=== PATIENT | female | born 1930 | race Hispanic/Latino ===

== ENCOUNTER 2020-01-30 12:22 | Emergency (ER) | payer OTHER ==
--- OUTSIDE RECORDS SUMMARY | 2020-01-30 13:07 | XMS REPORT | Continuity of Care Document ---
:1930 Author Organization [facility] t Address [address] [place] [address] [address]. [address] [place] [address] Care Team Providers Name Role Phone Estela VAZ Attending Clinician Unavailable Estela VAZ Admitting Clinician Unavailable Problems This patient has no known problems. Allergies, Adverse Reactions, Alerts This patient has no known allergies or adverse reactions. Medications This patient has no known medications. Procedures This patient has no known procedures. Encounters Start End Encounter Admission Attending Care Care Encounter Source Date/Time Date/Time Type Type Clinicians Facility Department ID 2016-09-27 2016-09-28 Inpatient [address] [facility] [id number] [facility] 18:00:00 21:21:00 [facility] ([facility]) Results Test Description Test Time Test Comments Results Result Sour e Comments ECHO COMPLETE 2016-11-19 [facility] W/DOP[facility]ER [address] [place], [place] [address] RE[facility]Name: SIENNA GA Study Date: 11/27/2016 03:21 PMMRN: [id number] Patient Location: T4\S\4411\S\AHR: 70DOB: 1930 (M/d/yyyy)Gender: FemaleAge: 86 yrsHeight: 61 in Weight: 104 lbBSA: 1.4 [id number] For Study: CHEST PAINProceduresA complete two-dimensional transthoracic echocardiogram was performed (2D,M-mode, Doppler and color flow Doppler).MMode/2D Measurements and CalculationsIVSd: 1.3 cm LVIDd: 4.3 cmIVSs: 2.0 cm LVIDs: 2.7 cmLVPWd: 1.4 cmLVPWs: 1.6 cm FS: 38.2 % % IVS thick: 51.6 %EDV(Teich): 84.6 mlESV(Teich): 26.5 mlEF(Teich): 68.7 % SV(Teich): 58.2 ml MV E-F slope: 4.8 cm/sec Ao root diam: 2.7 cm LVOT diam: 2.0 cmAo root area: 5.8 cm LVOT area: 3.1 cm2ACS: 1.4 cmLA dimension: 4.4 cm SV(MOD-sp4): 27.4 mlLVAd ap4: 22.7 cmLVLd ap4: 7.0 cmEDV(MOD-sp4): 59.5 mlEDV(sp4-el): 62.6 mlLVAs ap4: 15.5 cmLVLs ap4: 6.4 cmESV(MOD-sp4): 32.0 mlESV(sp4-el): 31.5 mlEF(MOD-sp4): 46.1 %EF(sp4-el): 49.7 % SV(sp4-el): 31.1 mlDoppler Measurements and CalculationsMV E max lily: 75.8 cm/sec MV P1/2t max lily: 77.0 cm/secMV A max lily: 137.5 cm/sec MV P1/2t: 74.0 msecMV E/A: 0.55 MVA(P1/2t): 3.0 cmMV dec slope: 304.5 cm/secMV dec time: 0.26 sec Ao V2 max: 113.1 cm/sec LV V1 max P.2 mmHgAo max P.1 mmHg LV V1 max: 90.0 cm/secAVA(V,D): 2.5 cm2 MR max lily: 461.6 cm/sec TR max lily: 370.0 cm/secMR max P.2 mmHg TR max P.8 mmHgRVSP(TR): 64.8 mmHg RAP systole: 10.0 mmHgLeft VentricleThe left ventricle is grossly normal size. There is mild concentric leftventricular hypertrophy. Left ventricular systolic function is mild tomoderately reduced. Ejection Fraction = 40-45%. The transmitral spectralDoppler flow pattern is suggestive of impaired LV relaxation. There is mildinferior wall hypokinesis. There is moderate lateral wall hypokinesis.Right VentricleThe right ventricle is grossly normal size. The right ventricle is not wellvisualized. The right ventricular systolic function is normal.AtriaThe left atrium is mildly dilated. Right atrial size is normal.Mitral ValveThere is mild mitral annular calcification. There is mild mitralregurgitation.Tricusp id ValveThe tricuspid valve is not well visualized, but is grossly normal. There ismoderate tricuspid regurgitation. Right ventricular systolic pressure is 60-65mmHg.Aortic ValveThe aortic valve opens well. There is moderate aortic valve sclerosis.Trace aortic regurgitation.Great VesselsThe aortic root is normal size.Interpretation SummaryLeft ventricular systolic function is mild to moderately reduced.Ejection Fraction = 40-45%.The transmitral spectral Doppler flow pattern is suggestive of impaired LVrelaxation.There is mild concentric left ventricular hypertrophy.There is moderate tricuspid regurgitation.Right ventricular systolic pressure is 60-65mmHg. Semaj Singer MD 11/29/2016Reading Physician: Electronically signed by:03:15 PMOrdering Physician: DREA RICHARDSONReferrkareen Physician: DREA RICHARDSONPerformed By: JASON LAIRD [facility], [facility] MRI BRAIN W 2016-11-[address] 07:44:00 [place], [place] [id number] IMAGING REPORTPatient Name: Say GA of Service: [id number]: 86 Sex: F Order #: [id number] Room: [address] [place] [address] T4DOB: 1930 X-Ray Number: [id number] Record Number: [id number] Hospital Number: [id number] Physician: DREA RICHARDSONOrdering Physician: SLIM BOXBrain MRI.History: Altered mental status.Technique: Pre and post IV contrast enhanced multiplanar multisequence MRIimages of the brain were reviewed.Comparison: None.Findings:Examination is limited to mild degree secondary to motion artifact.There are extensive chronic appearing microvascular ischemic changes noted.There are no specific acute appearing intracranial defects depicted.The ventricles appear symmetric and midline.The mobley-white matter differentiation appears normal.The intracranial flow voids appear normal.There are no areas of diffusion restriction to suggest the presence ofacute or subacute ischemia.There are no enhancing defects.Right maxillary sinus disease is noted.Impression:No specific acute appearing intracranial abnormalities.Extensive chronic microvascular ischemic changes.Right maxillary sinus disease.Electronically Signed By: Merrill Olvera M.D., 11/28/2016 7:42 AMLegally authenticated by YESENIA Cornell 2016-11-28 07:42:08 CHEST [address] 14:28:00 [place] [id number] IMAGING REPORTPatient Name: Say GA of Service: [id number]: 86 Sex: F Order #: [id number] Room: ERSDOB: 1930 X-Ray Number: [id number] Record Number: [id number] Hospital Number: [id number] Physician: Meaghan WALLIS Physician: Jolene PATINO one view 2112 hoursComparisons: 11/11/2015History: Unresponsive, CVA, asthma.Findings:Heart size is mildly enlarged.There is no focal lung consolidation. There is strandy atelectasis at thelung bases.There is no pleural effusion or pneumothorax.Hyperinflation could relate to COPD.Impression:No acute cardiopulmonary process.Electronically Signed By: Lazaro Torres M.D., 11/26/2016 2:26 PMLegally authenticated by MAHESH CUADRA 2016-11-26 14:26:02 CT HEAD W/O CONT [address] 14:19:00 [place], [place] [id number] IMAGING REPORTPatient Name: AURELIA GAWero of Service: [id number]: 86 Sex: F Order #: [id number] Room: ERSDOB: 1930 X-Ray Number: [id number] Record Number: [id number] Hospital Number: [id number] Physician: Meaghan WALLIS Physician: BRIGITTE PATINO head without contrast 10:13 PMHistory: ConfusionComparisons: 06/20/2014History: Altered mental status.This CT exam was performed using one or more of the following dosereduction techniques: Automated exposure control, adjustment of the MAand/or KV according to patient size or use of iterative reconstructiontechnique.Fin dings:There is diffuse cortical atrophy.Periventricular white matter changes are technically nonspecific althoughthese suggest chronic small vessel gliosis.There is no mass effect or midline shift present.There is no extra-axial fluid collection, intracranial hemorrhage orhydrocephalus.There is a right maxillary sinus retention cyst.Impression:Suspected chronic/old ischemic changes with diffuse cortical atrophy.No acute abnormality is detected.EMERGENT INTERPRETATION PROVIDED BY [facility].Electronically Signed By: Lazaro Torres M.D., 11/26/2016 2:16 PMLegally authenticated by MAHESH CUADRA 2016-11-26 14:16:51
[2020-01-30 14:20] LABS: Absolute Lymphocytes (CBC) 1.8 K/uL (0.7-4.9); Basophils % 0.3 % (0-1.3); Hematocrit 43.6 % (36.0-45.0); Lymphocytes % 27.4 % (15.3-44.8); MPV 9.5 fL (7.6-11.3); RBC Red Blood Cell Count 4.71 M/uL (3.86-4.86)
[2020-01-30 14:21] LABS: Protime INR 1.1
[2020-01-30] MEDS ORDERED: NA CHLORIDE 0.9% 500 ML ONE (14:21)
[2020-01-30 14:43] LABS: Albumin 3.2 g/dL (3.4-5.0); Bilirubin Direct 0.2 mg/dL (0-0.2); Bilirubin Total 0.4 mg/dL (0.2-1.0); Magnesium 1.7 mg/dL (1.8-2.4); Potassium 3.7 mmol/L (3.5-5.1); Protein, Total 7.7 g/dL (6.4-8.2); Troponin (Emerg Dept Use Only) 0.03 ng/mL (0.0-0.045)
--- NOTE | 2020-01-30 14:48 | RAD REPORT ---
EXAM DESCRIPTION: RAD - Chest Single View - 01/30/2020 2:31 pm CLINICAL HISTORY: weakness, history of positive COVID test COMPARISON: Portable December 2015 TECHNIQUE: AP portable chest image was obtained 01/30/2020 2:31 pm . FINDINGS: Extensive interstitial opacification is present similar or only slightly more pronounced t river seen previously. No dense consolidation seen. Minimal airspace opacification present. Again, airs pace findings are not substantially different. Heart and vasculature are normal. No measurable pleura l effusion and no pneumothorax. No acute bony abnormality seen. No acute aortic findings suspected. IMPRESSION: Extensive chronic interstitial lung disease not substantially different from comparison. This could mask early interstitial edema or infiltrate. No dense consolidation. Patient does have some hazy airspace opacification that is not substantially different. Viral pneumonia including COVID-19 pneumonia can have this appearance. If it would alter medical management, CT imaging could be performed to better assess airspace disease .
--- NOTE | 2020-01-30 16:06 | EDPHYS ---
Physician Documentation [facility] Name: Sirena Herrera Age: 89 yrs Sex: Female : 1930 Arrival Date: 01/30/2020 Time: 12:25 Bed 19 Private MD: ED Physician Rudolph Zhong HPI: 01/29 13:46 This 89 yrs old Female presents to ER via Wheelchair with complaints of jmm COVID+, Weakness. 13:46 Daughter states the patient was recently diagnoses with coronavirus and prescribed jmm azithromycin. Initial symptoms began this past Sunday. States the patient has not been able to eat or drink and has become increasingly weak. . Historical: - Allergies: 12:47 Amoxicillin; em 12:47 Bactrim; em 12:47 Codeine; em 12:47 darvocet; em 12:47 Doxycycline; em 12:47 Latex, Natural Rubber; em 12:47 metformin; em 12:47 Sulfa (Sulfonamide Antibiotics); em - Home Meds: 13:30 levothyroxine 50 mcg tab once daily [Active]; Lasix 20 mg Oral tab once daily [Active]; aa5 Januvia 100 mg oral tab 1 tab once daily [Active]; Keppra 250 mg Oral tab 2 times per day [Active]; Coreg 3.125 mg Oral tab 2 times per day [Active]; Plavix 75 mg Oral tab 1 tab once daily [Active]; donepezil 10 mg oral tab once daily [Active]; Tricor 145 mg Oral tab 1 tab once daily [Active]; Foltx oral oral once daily [Active]; Detrol LA 4 mg Oral cp24 1 cap once daily [Active]; Levemir 100 unit/mL subcutaneous soln 50 units in the morning and 15 units in the evening. [Active]; Celexa Oral 5mg daily [Active]; Lumigan 0.01 % ophthalmic drop [Active]; Alphagan P ophthalmic ophthalmic [Active]; alendronate 35 mg oral tab once wkly [Active]; Nitroglycerin SL [Active]; multivitamin oral tab [Active]; - PMHx: 12:47 Asthma; CAD; COPD; Diabetes - IDDM; Glaucoma; Hypothyroidism; Osteoporosis; PVD; em - PSHx: 12:47 Cholecystectomy; fem pop; aortagram; iliac bypass; trabeculectomy; cardiac stents; em Appendectomy; - Immunization history:: Adult Immunizations up to date. - Social history:: Smoking status: Patient denies any tobacco usage or history of. ROS: 13:46 Abdomen/GI: Negative for abdominal pain, nausea, vomiting, diarrhea, and constipation. [facility] 13:46 Constitutional: Positive for fatigue. 13:46 Respiratory: Positive for cough. 13:46 All other systems are negative. Exam: 13:46 Head/Face: atraumatic. Eyes: EOMI, no conjunctival erythema appreciated ENT: Moist jm Mucus Membranes Neck: Trachea midline, Supple Chest/axilla: Normal chest wall appearance and motion. Cardiovascular: Regular rate and rhythm. No edema appreciated Respiratory: Normal respirations, no respiratory distress appreciated Abdomen/GI: Non distended, soft Back: Normal ROM Skin: General appearance color normal 13:46 Constitutional: The patient appears alert, awake. 13:46 Musculoskeletal/extremity: no perepheral edema. 13:46 Skin: Appearance: Color: normal in color. 13:46 Neuro: Orientation: is normal, Mentation: is normal, Memory: is normal. 13:46 Psych: Behavior/mood is pleasant, cooperative. Vital Signs: 12:44 BP 139 / 61; Pulse 74; Resp 18; Temp 97.3; Pulse Ox 97% on R/A; Weight 53.52 kg; Height em 5 ft. 1 in. (154.94 cm); Pain 0/10; 15:00 BP 168 / 67; Pulse 71; Resp 18 S; Temp 97.7(O); Pulse Ox 97% on R/A; Pain 0/10; aa5 16:30 BP 154 / 65; Pulse 70; Resp 16 S; Pulse Ox 98% on R/A; aa5 12:44 Body Mass Index 22.30 (53.52 kg, 154.94 cm) em MDM: 13:36 Patient medically screened. [facility] 16:04 Data reviewed: vital signs, nurses notes. Counseling: I had a detailed discussion with samantha the patient and/or guardian regarding: the historical points, exam findings, and any diagnostic results supporting the discharge/admit diagnosis, lab results, radiology results, the need for outpatient follow up, to return to the emergency department if symptoms worsen or persist or if there are any questions or concerns that arise at home. 01/29 13:42 Order name: Basic Metabolic Panel; Complete Time: 14:49 [facility] 01/29 13:42 Order name: CBC with Diff; Complete Time: 14:29 [facility] 01/29 13:42 Order name: LFT's; Complete Time: 14:49 [facility] 01/29 13:42 Order name: Magnesium; Complete Time: 14:49 [facility] 01/29 13:42 Order name: NT PRO-BNP; Complete Time: 14:49 [facility] 01/29 13:42 Order name: PT-INR; Complete Time: 14:29 [facility] 01/29 13:42 Order name: Troponin (emerg Dept Use Only); Complete Time: 14:49 [facility] 01/29 13:42 Order name: XRAY Chest (1 view); Complete Time: 14:50 [facility] 01/29 13:42 Order name: EKG; Complete Time: 13:43 [facility] 01/29 13:42 Order name: CRP; Complete Time: 14:49 [facility] 01/29 15:38 Order name: Urine Culture [facility] 01/29 16:09 Order name: Urine Dipstick--Ancillary (enter results); Complete Time: 16:23 [facility] 01/29 13:42 Order name: Cardiac monitoring; Complete Time: 14:03 [facility] 01/29 13:42 Order name: EKG - Nurse/Tech; Complete Time: 15:53 [facility] 01/29 13:42 Order name: IV Saline Lock; Complete Time: 14:03 [facility] 01/29 13:42 Order name: Labs collected and sent; Complete Time: 14:03 [facility] 01/29 13:42 Order name: O2 Per Protocol; Complete Time: 14:03 [facility] 01/29 13:42 Order name: O2 Sat Monitoring; Complete Time: 14:03 [facility] 01/29 15:38 Order name: Urine Dipstick-Ancillary (obtain specimen); Complete Time: 16:00 [facility] Administered Medications: 14:10 Drug: NS 0.9% 500 ml Route: IV; Rate: bolus; Site: right antecubital; aa5 15:00 Follow up: IV Status: Completed infusion; IV Intake: 500ml aa5 16:45 Drug: Rocephin 1 grams Route: IV; Rate: calculated rate; Site: right antecubital; aa5 Disposition: 20:01 Co-signature as Attending Physician, Rudolph Zhong MD I agree with the assessment and kdr plan of care. Disposition: 01/30/20 16:05 Discharged to Home. Impression: Urinary tract infection, site not specified, Coronavirus infection, unspecified. - Condition is Stable. - Discharge Instructions: Urinary Tract Infection, Adult, COVID-19. - Prescriptions for cefpodoxime 200 mg Oral Tablet - take 1 tablet by ORAL route every 12 hours for 10 days with food; 20 tablet. - Medication Reconciliation Form, Thank You Letter, Antibiotic Education, Prescription Opioid Use form. - Follow up: Private Physician; When: 2 - 3 days; Reason: Recheck today's complaints, Continuance of care, Re-evaluation by your physician. Signatures: Dispatcher [employer] EDMS Rudolph Zhong MD MD kdr Mickail, Joel, PA PA [facility] Forest Lopez, RN RN em Emily Garcia RN RN Marleni Israel RN RN aa5 Corrections: (The following items were deleted from the chart) 17:52 16:05 01/30/2020 16:05 Discharged to Home. Impression: Urinary tract infection, site iw not specified; Coronavirus infection, unspecified. Condition is Stable. Forms are Medication Reconciliation Form, Thank You Letter, Antibiotic Education, Prescription Opioid Use. Follow up: Private Physician; When: 2 - 3 days; Reason: Recheck today's complaints, Continuance of care, Re-evaluation by your physician. [facility]
--- NOTE | 2020-01-30 16:06 | ER ---
Nurse's Notes [facility] Name: Sirena Herrera Age: 89 yrs Sex: Female : 1930 Arrival Date: 01/30/2020 Time: 12:25 Bed 19 Private MD: Diagnosis: Urinary tract infection, site not specified;Coronavirus infection, unspecified Presentation: 01/29 12:44 Chief complaint: Patient's son or daughter states: was tested for covid 1 week ago and em tested pos. since then she has been more weak and not drinking water, denies SOB or CP. Coronavirus screen: Client reports previous positive COVID test result. Date of collection: January 23, 2020. Ebola Screen: Patient negative for fever greater than or equal to 101.5 degrees Fahrenheit, and additional compatible Ebola Virus Disease symptoms Patient denies exposure to infectious person. Patient denies travel to an Ebola-affected area in the 21 days before illness onset. No symptoms or risks identified at this time. Initial Sepsis Screen: Does the patient meet any 2 criteria? No. Patient's initial sepsis screen is negative. Does the patient have a suspected source of infection? No. Patient's initial sepsis screen is negative. Risk Assessment: Do you want to hurt yourself or someone else? Patient reports no desire to harm self or others. Onset of symptoms was January 23, 2020. 12:44 Method Of Arrival: Wheelchair em 12:44 Acuity: ERIKA 3 em Historical: - Allergies: 12:47 Amoxicillin; em 12:47 Bactrim; em 12:47 Codeine; em 12:47 darvocet; em 12:47 Doxycycline; em 12:47 Latex, Natural Rubber; em 12:47 metformin; em 12:47 Sulfa (Sulfonamide Antibiotics); em - Home Meds: 13:30 levothyroxine 50 mcg tab once daily [Active]; Lasix 20 mg Oral tab once daily [Active]; aa5 Januvia 100 mg oral tab 1 tab once daily [Active]; Keppra 250 mg Oral tab 2 times per day [Active]; Coreg 3.125 mg Oral tab 2 times per day [Active]; Plavix 75 mg Oral tab 1 tab once daily [Active]; donepezil 10 mg oral tab once daily [Active]; Tricor 145 mg Oral tab 1 tab once daily [Active]; Foltx oral oral once daily [Active]; Detrol LA 4 mg Oral cp24 1 cap once daily [Active]; Levemir 100 unit/mL subcutaneous soln 50 units in the morning and 15 units in the evening. [Active]; Celexa Oral 5mg daily [Active]; Lumigan 0.01 % ophthalmic drop [Active]; Alphagan P ophthalmic ophthalmic [Active]; alendronate 35 mg oral tab once wkly [Active]; Nitroglycerin SL [Active]; multivitamin oral tab [Active]; - PMHx: 12:47 Asthma; CAD; COPD; Diabetes - IDDM; Glaucoma; Hypothyroidism; Osteoporosis; PVD; em - PSHx: 12:47 Cholecystectomy; fem pop; aortagram; iliac bypass; trabeculectomy; cardiac stents; em Appendectomy; - Immunization history:: Adult Immunizations up to date. - Social history:: Smoking status: Patient denies any tobacco usage or history of. Screenin:00 Abuse screen: No signs of abuse noted. Nutritional screening: Pt's daughter reports aa5 decreased appetite . Tuberculosis screening: No symptoms or risk factors identified. Fall Risk Fall in past 12 months (25 points). IV access (20 points). Mental Status- Overestimates/Forgets Limitations (15 pts.). Total Evans Fall Scale indicates High Risk Score (45 or more points). Fall prevention measures have been instituted. Side Rails Up X 2 Placed Close to Nursing Station. Assessment: 13:30 General: Appears comfortable, Behavior is calm, cooperative. Pain: Denies pain. Neuro: aa5 Level of Consciousness is awake, obeys commands, confused, Oriented to person, Automobile Upholsterer Apprentice are weak bilaterally Weakness Speech is normal. Cardiovascular: Heart tones S1 S2 present Rhythm is regular. Respiratory: Airway is patent Respiratory effort is even, unlabored, Respiratory pattern is regular, symmetrical, Breath sounds are clear bilaterally. Parent/caregiver reports the patient having cough. GI: Abdomen is round distended, Parent/caregiver reports the patient having decreased appetite. : brief noted. EENT: No signs and/or symptoms were reported regarding the EENT system. Derm: Skin is pink, warm \\T\\ dry. Musculoskeletal: Range of motion: intact in all extremities. 14:20 Reassessment: Pt assisted with bedpan, pt voided without difficulties. Clean brief aa5 applied. . 14:23 Reassessment: x-ray at bedside . aa5 14:30 Reassessment: Pt calm, pt lying down in bed. Equal and unlabored respirations, skin is aa5 pink/warm/dry. . 15:30 Reassessment: Pt lying down in bed. Equal and unlabored respirations, skin is aa5 pink/warm/dry. . 16:00 Reassessment: Pt more confused at this time, pt screaming for "Heidy", pt redirected aa5 and able to calm down after being redirected verbally. Pt's daughter states "when she starts screaming for Heidy is because she's " . 16:30 Reassessment: Awaiting for ride home for d/c home. . aa5 17:30 Neuro: Level of Consciousness is awake, obeys commands, confused, Oriented to person. aa5 Respiratory: Airway is patent Respiratory effort is even, unlabored, Respiratory pattern is regular, symmetrical. Derm: Skin is pink, warm \\T\\ dry. Vital Signs: 12:44 BP 139 / 61; Pulse 74; Resp 18; Temp 97.3; Pulse Ox 97% on R/A; Weight 53.52 kg; Height em 5 ft. 1 in. (154.94 cm); Pain 0/10; 15:00 BP 168 / 67; Pulse 71; Resp 18 S; Temp 97.7(O); Pulse Ox 97% on R/A; Pain 0/10; aa5 16:30 BP 154 / 65; Pulse 70; Resp 16 S; Pulse Ox 98% on R/A; aa5 12:44 Body Mass Index 22.30 (53.52 kg, 154.94 cm) em ED Course: 12:25 Patient arrived in ED. ag5 12:46 Triage completed. em 12:47 Arm band placed on. em 13:29 Anderson Maldonado PA is PHCP. jmm 13:29 Rudolph Zhong MD is Attending Physician. jmm 13:30 Patient has correct armband on for positive identification. Bed in low position. Call aa5 light in reach. Side rails up X2. heavy forger helper on. Pulse ox on. NIBP on. 13:44 Marleni Hoff, KAMERON is Primary Nurse. aa5 13:58 Initial lab(s) drawn, by me, sent to lab. Inserted saline lock: 20 gauge in right aa5 antecubital area, using aseptic technique. Blood collected. 14:31 XRAY Chest (1 view) In Process Unspecified. EDMS 17:30 No provider procedures requiring assistance completed. IV discontinued, intact, aa5 bleeding controlled, No redness/swelling at site. Pressure dressing applied. Administered Medications: 14:10 Drug: NS 0.9% 500 ml Route: IV; Rate: bolus; Site: right antecubital; aa5 15:00 Follow up: IV Status: Completed infusion; IV Intake: 500ml aa5 16:45 Drug: Rocephin 1 grams Route: IV; Rate: calculated rate; Site: right antecubital; aa5 Intake: 15:00 IV: 500ml; Total: 500ml. aa5 Outcome: 16:05 Discharge ordered by . [facility] 17:30 Discharged to home via wheelchair, with family. aa5 17:30 Condition: stable 17:30 Discharge instructions given to Pt's daughter/caregiver Instructed on discharge instructions, follow up and referral plans. medication usage, Demonstrated understanding of instructions, follow-up care, medications, Prescriptions given X 1. 17:52 Patient left the ED. iw Signatures: Dispatcher [employer] EDMS Anderson Maldonado PA PA jmm Munoz, Edgar, RN Emily Reyes RN RN iw Calderon, Audri, RN RN aa5 More [facility] [place]
[2020-01-30 16:22] LABS: Urine Blood TRACE (NEG); Urine Glucose NEGATIVE (NEG); Urine Protein 1+ (NEG)
[2020-01-30] MEDS ORDERED: CEFTRIAXONE/SWI 1gm 1 GM/10 ML SYR ONE (17:11)
[2020-02-04 06:55] VITALS: O2SAT 97
[2020-02-04 07:01] VITALS: BP 168/67; TEMP 97.7
== END 2020-01-30 17:52 | disposition home or self-care (01) ==
LOC: ER 12:22
DX: N39.0 Urinary tract infection, site not specified (principal); U07.1 COVID-19; E11.9 Type 2 diabetes mellitus without complications; E03.9 Hypothyroidism, unspecified; J44.9 Chronic obstructive pulmonary disease, unspecified; Z79.01 Long term (current) use of anticoagulants; Z79.4 Long term (current) use of insulin; Z88.1 Allergy status to other antibiotic agents; Z88.2 Allergy status to sulfonamides; Z88.5 Allergy status to narcotic agent; Z88.8 Allergy status to other drugs, medicaments and biological substances; Z91.040 Latex allergy status; Z91.048 Other nonmedicinal substance allergy status; Z95.818 Presence of other cardiac implants and grafts
CPT/HCPCS: 96361; 93005 ×2; 87088; 85025; 87086; 80048; 36415; 83735; 85610; 80076; 87077; 87186; 81003; 84484; 83880; 86140; 71045; 96374; 99284; J0696; J7040